=== PATIENT | male | born 1985 | race Caucasian/White ===

== ENCOUNTER 2017-05-30 17:53 | Emergency (ER) | payer SELFPAY ==
[~2017-05-30] VITALS: Ht 175.3 cm; Wt 70.5 kg
[2017-05-30] MEDS ORDERED: KETOROLAC 30 MG/ML VIAL (J1885) IV ONE (18:15)
[2017-05-30 18:38] LABS: ANION GAP 9 MEQ/L (8-16); BLOOD UREA NITROGEN 6 MG/DL (7-18); CALCIUM LEVEL 8.5 MG/DL (8.5-10.1); CARBON DIOXIDE LEVEL 22 MEQ/L (21-32); CHLORIDE LEVEL 110 MEQ/L (98-107); CREATININE FOR GFR 0.84 MG/DL (0.70-1.30); GLOMERULAR FILTRATION RATE > 60.0 (>60); GLUCOSE, FASTING 85 MG/DL (70-105); POTASSIUM SERUM 4.4 MEQ/L (3.5-5.1); SODIUM LEVEL 141 MEQ/L (136-145)
[2017-05-30 18:41] LABS: MICROSCOPIC INDICATED? MAN YES (NO)
[2017-05-30 18:49] LABS: BASO # 0.1 K/mm3 (0.0-0.2); BASO % 0.5 % (0.0-1.0); EOS # 0.2 K/mm3 (0.0-0.50); EOS % 1.4 % (0.0-3.0); LARGE UNSTAINED CELL # 0.2 K/mm3 (0.0-0.4); LARGE UNSTAINED CELL % 1.6 % (0.0-4.0); LYMPH # 3.3 K/mm3 (1.5-4.5); LYMPH % 28.6 % (24.0-44.0); MEAN CORPUSCULAR HEMOGLOBIN 32.1 pg (27.0-33.0); MEAN CORPUSCULAR HGB CONC 34.4 g/dl (32.0-36.5); MEAN CORPUSCULAR VOLUME 93.3 fl (80.0-96.0); MONO # 0.6 K/mm3 (0.0-0.8); MONO % 5.5 % (0.0-5.0); NEUTROPHILS # 6.7 K/mm3 (1.8-7.7); NEUTROPHILS % 62.3 % (36.0-66.0); PLATELET COUNT, AUTOMATED 284 k/mm3 (150-450); RED CELL DISTRIBUTION WIDTH 12.9 % (11.5-14.5); WHITE BLOOD COUNT 10.8 K/mm3 (4.0-10.0)
[2017-05-30 18:56] LABS: SQUAMOUS EPITHELIAL CELL URINE SMALL AMOUNT /hpf (SMALL AMT); WBC, URINE 0-1 /hpf (0-3)
[2017-05-30 18:57] LABS: BACTERIA, URINE SMALL AMOUNT; HYALINE CAST, URINE NONE SEEN /lpf (0-1); MICROSCOPIC EXAM PERFORMED
--- NOTE | 2017-05-30 20:20 | REPUSA ---
CLINICAL HISTORY: Right flank pain. TECHNIQUE: CT abdomen and pelvis without contrast. Total DLP 362.6 mGy*cm. COMPARISON: No pertinent prior studies are available at this time. CT ABDOMEN WITHOUT CONTRAST: Lung bases: No lung base infiltrate or effusion. Bibasilar dependent atelectasis. Liver: No intrahepatic ductal dilation. Gallbladder: Normally distended. Pancreas: No pancreatic duct dilation. Bowel loops: Nondistended. Spleen: Normal size. Adrenals: Normal size. Right kidney: 1 mm stone in the right ureterovesicular junction produces mild hydronephrosis. Left kidney: No stones or hydronephrosis. Aorta: Normal caliber. Peritoneum: No free air. CT PELVIS WITHOUT CONTRAST: Bladder: Contracted. Colon: Nondistended. Appendix: Normal appendix is seen. Pelvic organs: Unremarkable. Peritoneum: No fluid. Skeleton: No acute findings. IMPRESSION: 1 mm stone at the right ureterovesicular junction produces mild hydronephrosis.
[2017-05-30] MEDS ORDERED: NORCO 5/325MG TABLET (BULK FOR ED) PO ONE (20:45)
[2017-05-30] MEDS ORDERED: TAMSULOSIN 0.4 MG CAP PO ONE (20:45)
[2017-05-30 20:50] VITALS: BP 124/69
[2017-05-30] MEDS ORDERED: FLOM5CAP PO (21:02)
[2017-05-30] MEDS ORDERED: NORCOTAB PO (21:02)
[2017-05-30] MEDS ORDERED: NAPR500T PO (21:02)
== END 2017-05-30 21:14 | disposition home or self-care (01) ==
LOC: M ED 17:53
DX: N13.2 Hydronephrosis with renal and ureteral calculous obstruction (principal); R10.9 Unspecified abdominal pain; F17.210 Nicotine dependence, cigarettes, uncomplicated; Z87.442 Personal history of urinary calculi
CPT/HCPCS: 36415; 74176; 80048; 81000; 85025; 86140; 87086; 96374; 99283; J1885

== ENCOUNTER 2024-04-27 09:56 | Emergency (ER) | payer OTHER, SELFPAY ==
[~2024-04-27] VITALS: Ht 175.3 cm; Wt 79.3 kg
[~2024-04-27 09:56] MED LIST: FLOM0.4C39 PO; HYDR-3715 PO; NAPR-837 PO
[2024-04-27 09:57] VITALS: BP 151/90; TEMP 97.9; O2SAT 98
== END 2024-04-27 11:54 | disposition home or self-care (01) ==
LOC: M ED 09:56
DX: H93.12 Tinnitus, left ear (principal); F17.210 Nicotine dependence, cigarettes, uncomplicated